=== PATIENT | male | born 1960 | race Caucasian/White ===

== ENCOUNTER → 2016-11-19 | Outpatient (CLI) | payer BC | END | disposition home or self-care (01) | LOC: RADMRIMAIN 07:44 | PROVIDERS: ATTEND Otolaryngology | DX: Z53.9 Procedure and treatment not carried out, unspecified reason (principal) ==

== ENCOUNTER → 2016-12-03 | Outpatient (CLI) | payer BC ==
--- NOTE | 2016-12-03 10:34 | XR ---
EXAMINATION TYPE: XR orbit pre-MRI foreign body DATE OF EXAM: 12/03/2016 COMPARISON: NONE HISTORY: Had metal removed from both eyes. Preoperative foreign body evaluation. TECHNIQUE: 2 views of the orbits were obtained. FINDINGS: No radiopaque metallic foreign body is appreciated. Orbits are symmetric and intact. Parana germain sinuses and visualized mastoid air cells are well aerated. IMPRESSION: No radiopaque metallic foreign body.
[2016-12-03 10:46] LABS: Blood Urea Nitrogen 16 mg/dL (9-20); Non-African American GFR(MDRD) >60 (>60 ml/min/1.73 sqM)
== END | disposition home or self-care (01) ==
LOC: LABWHC1 09:37
PROVIDERS: ATTEND Otolaryngology
DX: Z01.818 Encounter for other preprocedural examination (principal)
CPT/HCPCS: 36415; 70030; 82565; 84520

== ENCOUNTER 2023-10-01 17:04 | Emergency (ER) | payer OTHER, MEDICARE ==
[2023-10-01 17:09] VITALS: RESP 18
--- NOTE | 2023-10-01 17:31 | ED ---
Extremity Problem HPI - General Chief complaint: Extremity Problem,Nontraumatic Stated complaint: R Knee Pain Time Seen by Provider: 10/01/23 17:30 Source: patient, RN notes reviewed Mode of arrival: ambulatory Limitations: no limitations - History of Present Illness Initial comments: 53-year-old male presented to the ER with a chief complaint of right knee pain and swelling. He states for the past couple of months he has noted increasing swelling and pain to the right knee. Denies any injuries or traumas. He states he works at [employer] 3 days a week and is on his feet most of the day. He has been wearing a knee brace and taking [id number] anti-inflammatories without relief. He denies any fevers or chills. Denies a history of gout. Denies a history of blood clots. - Related Data Home Medications Medication Instructions Recorded Confirmed Losartan Potassium [Cozaar] 100 mg PO DAILY 10/01/23 10/01/23 Sertraline HCl [Zoloft] 50 mg PO DAILY 10/01/23 10/01/23 amLODIPine [Norvasc] 10 mg PO DAILY 10/01/23 10/01/23 hydroCHLOROthiazide [Hydrodiuril] 50 mg PO DAILY 10/01/23 10/01/23 Allergies Allergy/AdvReac Type Severity Reaction Status Date / Time No Known Allergies Allergy Verified 10/01/23 17:08 Review of Systems ROS Statement: Those systems with pertinent positive or pertinent negative responses have been documented in the HPI. ROS Other: All systems not noted in ROS Statement are negative. Past Medical History Smoking Status: Former smoker Past Alcohol Use History: None Reported Past Drug Use History: None Reported General Exam - General Exam Comments Initial Comments: Visual Physical Exam Vital signs reviewed General: Well-appearing, nontoxic, no acute distress. Head: Normocephalic, atraumatic Eyes: PERRLA, EOMI ENT: Airway patent Chest: Nonlabored breathing Skin: No visual rash, normal skin tone Neuro: Alert and oriented 3 Musculoskeletal: No gross abnormalities, swelling to right knee Limitations: no limitations General appearance: alert, in no apparent distress Respiratory exam: Present: normal lung sounds bilaterally. Absent: respiratory distress, wheezes, rales, rhonchi, stridor Cardiovascular Exam: Present: regular rate, normal rhythm, normal heart sounds. Absent: systolic murmur, diastolic murmur, rubs, gallop, clicks Extremities exam: Present: tenderness (Tenderness and edema to right knee. Mild calf tenderness. 2+ right dorsalis pedis pulse. Patient has limited active flexion due to edema. Petechiae to lower calf and ankle) Skin exam: Present: warm, dry, intact, normal color. Absent: rash Course Vital Signs 10/01/23 10/01/23 17:05 21:18 Temperature 98.2 F 98.1 F Pulse Rate 84 67 Respiratory 18 18 Rate Blood Pressure 183/93 158/83 O2 Sat by Pulse 96 96 Oximetry Medical Decision Making - Medical Decision Making I performed the quick note portion of this chart. Electronically signed by Gabby Nash PA-C Was pt. sent in by a medical professional or institution ([facility], [employer], urgent care, hospital, or custodial...) When possible be specific @ -No Did you speak to anyone other than the patient for history (EMS, parent, family, police, friend...)? What history was obtained from this source @ -No Did you review nursing and triage notes (agree or disagree)? Why? @ -I reviewed and agree with nursing and triage notes Were old charts reviewed (outside hosp., previous admission, EMS record, old EKG, old radiological studies, urgent care reports/EKG's, custodial records)? Report findings @ -No old charts were reviewed Differential Diagnosis (chest pain, altered mental status, abdominal pain women, abdominal pain men, vaginal bleeding, weakness, fever, dyspnea, syncope, headac he, dizziness, GI bleed, back pain, seizure, CVA, palpatations, mental health, musculoskeletal)? @ -Differential Musculoskeletal: Muscular strain, contusion, ligament sprain, fracture, arthritis, septic arthritis, bursitis, cellulitis, muscle spasm, nerve compression, DVT, arterial occlusion, herpes zoster, electrolyte abnormality, tumor.... This is not meant to be in all inclusive list EKG interpreted by me (3pts min.). @ -None X-rays interpreted by me (1pt min.). @ -Right knee x-ray interpreted by me negative for acute fractures or dislocations. Joint effusion present. CT interpreted by me (1pt min.). @ -None done U/S interpreted by me (1pt. min.). @ -Ultrasound right lower extremity venous Doppler negative for evidence of DVT. What testing was considered but not performed or refused? (CT, X-rays, U/S, labs)? Why? @ -None What meds were considered but not given or refused? Why? @ -None Did you discuss the management of the patient with other professionals (professionals i.e. , PA, [employer], lab, RT, psych nurse, social service liaison, farm implement engine mechanic, teacher, project control officer, manager case)? Give summary @ -No Was smoking cessation discussed for >3mins.? @ -No Was critical care preformed (if so, how long)? @ -No Were there social determinants of health that impacted care today? How? (Ho melessness, low income, unemployed, alcoholism, drug addiction, transportation, low edu. Level, literacy, decrease access to med. care, penitentiary, rehab)? @ -No Was there de-escalation of care discussed even if they declined (Discuss DNR or withdrawal of care, Hospice)? DNR status @ -No What co-morbidities impacted this encounter? (DM, HTN, Smoking, COPD, CAD, Cancer, CVA, ARF, Chemo, Hep., AIDS, mental health diagnosis, sleep apnea, morbid obesity)? @ -None Was patient admitted / discharged? Hospital course, mention meds given and route, prescriptions, significant lab abnormalities, going to OR and other pertinent info. @ -Discharged. 63 year old male presenting to the ER with a chief complaint of right knee pain and swelling. History and physical exam completed. Vitals stable. RLE neurovascularly intact. Joint effusion, warmth and redness of right knee present. There is mild calf tenderness and petechiae of calf. Right knee xray negative for acute fractures or dislocations. There is a joint effusion present. Due to calf tenderness ultrasound obtained to rule out DVT. Ultrasound venous Doppler right lower extremity negative for acute DVT. Laboratory studies obtained to rule out gout as knee was warm to touch and erythematous. Laboratory studies obtained unremarkable. Patient received IV toradol for pain control in the ER. Results discussed with patient, all qu estions answered. Close follow-up with orthopedics advised, referral given. I advised rest, compression, elevation and gfpw-oax-yiwircd analgesic medication. Return parameters discussed. Patient discharged in stable condition. Patient verbally expressed understanding and agreed with care plan. Case discussed with ED attending, Dr. Anaya. Undiagnosed new problem with uncertain prognosis? @ -No Drug Therapy requiring intensive monitoring for toxicity (Heparin, Nitro, Insulin, Cardizem)? @ -No Were any procedures done? @ -No Diagnosis/symptom? @ -Knee effusion Acute, or Chronic, or Acute on Chronic? @ -Acute Uncomplicated (without systemic symptoms) or Complicated (systemic symptoms)? @ -Uncomplicated Side effects of treatment? @ -No Exacerbation, Progression, or Severe Exacerbation? @ -No Poses a threat to life or bodily function? How? (Chest pain, [place], [place], pneumonia, PE, COPD, DKA, ARF, appy, cholecystitis, CVA, Diverticulitis, Homicidal, Suicidal, threat to staff... and all critical care pts) @ -No - Lab Data Result diagrams: 10/01/23 19:13 10/01/23 19:13 Lab Results 10/01/23 10/01/23 Range/Units 19:13 19:13 WBC 8.4 (3.8-10.6) k/uL RBC 4.98 (4.30-5.90) m/uL Hgb 15.0 (13.0-17.5) gm/dL Hct 45.9 (39.0-53.0) % MCV 92.1 (80.0-100.0) fL MCH 30.0 (25.0-35.0) pg MCHC 32.6 (31.0-37.0) g/dL RDW 12.4 (11.5-15.5) % Plt Count 261 (150-450) k/uL MPV 6.8 Neutrophils % 73 % Lymphocytes % 16 % Monocytes % 6 % Eosinophils % 3 % Basophils % 1 % Neutrophils # 6.1 (1.3-7.7) k/uL Lymphocytes # 1.4 (1.0-4.8) k/uL Monocytes # 0.5 (0-1.0) k/uL Eosinophils # 0.3 (0-0.7) k/uL Basophils # 0.1 (0-0.2) k/uL Sodium 138 (137-145) mmol/L Potassium 3.9 (3.5-5.1) mmol/L Chloride 104 (98-107) mmol/L Carbon Dioxide 25 (22-30) mmol/L Anion Gap 9 mmol/L BUN 23 H (9-20) mg/dL Creatinine 0.55 L (0.66-1.25) mg/dL Est GFR (CKD-EPI)AfAm >90 (>60 ml/min/1.73 sqM) Est GFR (CKD-EPI)NonAf >90 (>60 ml/min/1.73 sqM) Glucose 87 (74-99) mg/dL Uric Acid 6.4 (3.5-8.5) mg/dL Calcium 9.5 (8.4-10.2) mg/dL Total Bilirubin 0.6 (0.2-1.3) mg/dL AST 33 (17-59) U/L ALT 20 (4-49) U/L Alkaline Phosphatase 81 (38-126) U/L Total Protein 7.5 (6.3-8.2) g/dL Albumin 4.6 (3.5-5.0) g/dL - Radiology Data Radiology results: report reviewed, image reviewed Disposition Clinical Impression: Knee effusion Disposition: HOME SELF-CARE Condition: Stable Instructions (If sedation given, give patient instructions): Swollen Knee Joint (ED) Additional Instructions: Follow-up orthopedics in the next 1 to 2 days. Return to the ER for any new or worsening concerns. Is patient prescribed a controlled substance at d/c from ED?: No Referrals: [facility],Clinic [Primary Care Provider] - 1-2 days Omar Zaragoza MD [STAFF PHYSICIAN] - 1-2 days Time of Disposition: 21:05
--- NOTE | 2023-10-01 17:38 | XR ---
EXAMINATION TYPE: XR knee complete RT DATE OF EXAM: 10/01/2023 5:22 PM CLINICAL INDICATION:Male, 63 years old with history of Pain; [facility] COMPARISON: None. TECHNIQUE: XR knee complete RT; examined in Frontal, lateral and oblique projections. FINDINGS/IMPRESSION: 1. Joint effusion with soft tissue swelling around the no fracture definitely visualized. Further ev aluation with MRI recommended. 2. No evidence of fracture. 3. Mild degeneration with joint space and osteophyte formation.
[2023-10-01] MEDS: KETOROLAC 15 MG/ML 1 ML VIAL IVP STA (19:16)
[2023-10-01 19:21] LABS: Basophils # (A) 0.1 k/uL (0-0.2); Basophils % (A) 1 %; Eosinophils # (A) 0.3 k/uL (0-0.7); Eosinophils % (A) 3 %; HCT 45.9 % (39.0-53.0); Lymphocytes # (A) 1.4 k/uL (1.0-4.8); Lymphocytes % (A) 16 %; MCHC 32.6 g/dL (31.0-37.0); MCV 92.1 fL (80.0-100.0); Mean Platelet Volume 6.8; Monocytes # (A) 0.5 k/uL (0-1.0); Monocytes % (A) 6 %; Neutrophils # (A) 6.1 k/uL (1.3-7.7); Neutrophils % (A) 73 %; Platelet Count 261 k/uL (150-450); RBC 4.98 m/uL (4.30-5.90); RDW 12.4 % (11.5-15.5); WBC 8.4 k/uL (3.8-10.6)
[2023-10-01 19:41] LABS: ALT 20 U/L (4-49); African American GFR (CKD) >90 (>60 ml/min/1.73 sqM); Albumin 4.6 g/dL (3.5-5.0); Anion Gap 9 mmol/L; Blood Urea Nitrogen 23 mg/dL (9-20); Calcium 9.5 mg/dL (8.4-10.2); Carbon Dioxide 25 mmol/L (22-30); Chloride 104 mmol/L (98-107); Glucose 87 mg/dL (74-99); Non-African American GFR(CKD) >90 (>60 ml/min/1.73 sqM); Sodium 138 mmol/L (137-145); Total Bilirubin 0.6 mg/dL (0.2-1.3); Total Protein 7.5 g/dL (6.3-8.2); Uric Acid 6.4 mg/dL (3.5-8.5)
[2023-10-01 19:48] LABS: AST 33 U/L (17-59); Alkaline Phosphatase 81 U/L (38-126); Potassium 3.9 mmol/L (3.5-5.1)
--- NOTE | 2023-10-01 20:58 | US ---
EXAMINATION TYPE: US venous doppler duplex LE RT DATE OF EXAM: 10/01/2023 8:42 PM COMPARISON: NONE CLINICAL INDICATION: Male, 63 years old with history of pain; Patient states pain off and on for a fe w years . Knee swelling. No hx of DVT, patient not on thinners. SIDE PERFORMED: Right TECHNIQUE: The lower extremity deep venous system is examined utilizing real time linear array sonog christine with graded compression, doppler sonography and color-flow sonography. VESSELS IMAGED: Common Femoral Vein Deep Femoral Vein Greater Saphenous Vein * Femoral Vein Popliteal Vein Small Saphenous Vein * Proximal Calf Veins (* superficial vessels) Right Leg: Negative for DVT IMPRESSION: Grayscale, color doppler, spectral doppler imaging performed of the deep veins of the lo wer extremities. There is normal flow, compressibility, vascular waveforms.
[2023-10-01 21:20] VITALS: BP 158/83; PULSE 67; TEMP 98.1
[2023-10-02 02:19] LABS: Erythrocyte Sedimentation Rate 41 mm/Hr (0-20)
== END 2023-10-01 21:18 | disposition home or self-care (01) ==
LOC: EC 17:04
DX: M25.461 Effusion, right knee (principal); Z87.891 Personal history of nicotine dependence
CPT/HCPCS: 36415; 80053; 85652; 84550; 85025; 73562; 93971; 99284; 96374; J1885

== ENCOUNTER → 2023-10-29 | Outpatient (CLI) | payer OTHER ==
--- NOTE | 2023-10-30 10:32 | BD ---
EXAMINATION TYPE: Axial Bone Density DATE OF EXAM: 10/29/2023 CLINICAL HISTORY: 63 years old Male. ICD-10 CODE: Z13.820 OSTEOPOROSIS Height: 67in Weight: 237lb FRAX RISK QUESTIONS: History of Fracture in Adulthood: yes Secondary Osteoporosis: RISK FACTORS HISTORY OF: History of Wrist Fracture: yes When: as a child MEDICATIONS: EXAM MEASUREMENTS: Bone mineral densitometry was performed using the [employer]. Bone mineral density as measured about the Lumbar spine is: ----- L1-L4(G/cm2): 1.225 T Score Values are as follows: ----- L1: 0.6 ----- L2: -0.6 ----- L3: 0.2 ----- L4: 0.9 ----- L1-L4: 0.4 Z Score Values are as follows: ----- L1: 0.1 ----- L2: -1.2 ----- L3: -0.4 ----- L4: 0.3 ----- L1-L4: -0.[address] [facility] Bone mineral density about the R hip (g/cm2): 1.035 Bone mineral density about the L hip (g/cm2): 1.108 T Score values are as follows: -----R Neck: -0.5 -----L Neck: -0.3 -----R Total: 0.2 -----L Total: 0.8 Z Score values are as follows: -----R Neck: -0.2 -----L Neck: 0.0 -----R Total: -0.4 -----L Total: 0.[address] [facility] FRAX%s: The graph provided illustrates a 7.7% chance for a major osteoporotic fx and a 0.7% chance fo r the hips probability for fx in 10 years time. IMPRESSION: Normal (Values between +1 and -1 indicate normal bone mass). Consider repeating this study in 5 year s or sooner if there is some new clinical indication. NOTE: T-SCORE=SD OF THE YOUNG ADULT MEAN.
== END | disposition home or self-care (01) ==
LOC: RADBDWWP 12:52
PROVIDERS: ATTEND Family Medicine
DX: Z13.820 Encounter for screening for osteoporosis (principal); M81.8 Other osteoporosis without current pathological fracture
CPT/HCPCS: 77080

== ENCOUNTER → 2023-11-06 | Outpatient (CLI) | payer OTHER ==
[2023-11-07 02:38] LABS: Basophils # (A) 0.03 X 10*3/uL (0.00-0.10); Basophils % (A) 0.4 %; Eosinophils # (A) 0.25 X 10*3/uL (0.04-0.35); Eosinophils % (A) 3.4 %; HCT 45.8 % (39.6-50.0); HGB 15.2 g/dL (13.0-17.0); Lymphocytes # (A) 1.36 X 10*3/uL (0.90-5.00); Lymphocytes % (A) 18.7 %; MCH 30.1 pg (27.0-32.0); MCHC 33.2 g/dL (32.0-37.0); MCV 90.7 FL (80.0-97.0); Mean Platelet Volume 9.4 FL (9.5-12.2); Monocytes # (A) 0.49 X 10*3/uL (0.20-1.00); Monocytes % (A) 6.7 %; NRBC Per 100 WBC 0 X 10*3/uL (0.00-0.01); Neutrophils % (A) 70.2 %; Platelet Count 228 X 10*3/uL (140-440); RBC 5.05 X 10*6/uL (4.40-5.60); RDW 12.3 % (11.5-14.5); WBC 7.27 X 10*3/uL (4.50-10.00)
[2023-11-07 02:51] LABS: Anion Gap 13.6 mmol/L (4.00-12.00); Carbon Dioxide 27.4 mmol/L (21.6-31.8); Potassium 3.8 mmol/L (3.5-5.5)
== END | disposition home or self-care (01) ==
LOC: LABPAT 15:54
PROVIDERS: ATTEND Orthopaedic Surgery
DX: Z01.812 Encounter for preprocedural laboratory examination (principal)
CPT/HCPCS: 36415; 80051; 85025; 93005

== ENCOUNTER 2023-11-28 11:10 | Day surgery (SDC) | payer OTHER ==
[2023-11-28] MEDS ORDERED: DEXAMETHASONE SOD PHOSPHATE 4 MG/ML 1 ML VIAL ONE ×2 (12:40)
[2023-11-28] MEDS ORDERED: ONDANSETRON 4 MG/2 ML VIAL ONE ×2 (12:40)
[2023-11-28] MEDS ORDERED: LACTATED RINGERS 1,000 ML BAG ONE (13:22)
[2023-11-28] MEDS ORDERED: ePHEDrine 50 MG/ML 1 ML VIAL ONE (13:22)
[2023-11-28] MEDS ORDERED: ceFAZolin 1,000 MG VIAL ONE (13:22)
[2023-11-28] MEDS ORDERED: fentaNYL (PF) 50 MCG/ML 2 ML AMP ONE (13:22)
[2023-11-28] MEDS ORDERED: LIDOCAINE 1% INJ 10MG/ML (20 ML MDV) ONE (13:22)
[2023-11-28] MEDS ORDERED: BUPIVACAINE (PF) 0.25% 30 ML VIAL ONE (13:22)
[2023-11-28] MEDS ORDERED: MIDAZOLAM 2 MG/2 ML VIAL ONE (13:22)
[2023-11-28] MEDS ORDERED: PROPOFOL 10 MG/ML 20 ML VIAL IV ONE (13:22)
[2023-11-28] MEDS ORDERED: SODIUM CHLORIDE 0.9% 50 ML BAG ONE (13:22)
[2023-11-28] MEDS ORDERED: HYDROmorphone 0.5 MG/0.5 ML SYRINGE ONE (14:20)
--- NOTE | 2023-11-29 15:57 | HP ---
HISTORY AND PHYSICAL DATE OF ANTICIPATED SURGERY: 11/28/2023. HISTORY OF PRESENT ILLNESS: Kevin Cooney is a 63-year-old gentleman who is seen with progressive right knee pain. We discussed options regarding treatment. He elected to proceed with right knee arthroscopy. Consent was obtained. PAST MEDICAL HISTORY: Hypertension, hyperlipidemia. PAST SURGICAL HISTORY: Herniorrhaphy. DAILY MEDICATIONS: 1. Amlodipine. 2. Hydrochlorothiazide. 3. Losartan. ALLERGIES: None. SOCIAL HISTORY: Denies tobacco use. PHYSICAL EVALUATION OF RIGHT KNEE: Range of motion is -3 to 110 degrees. Tenderness, medial joint line. Positive medial Torrie's. Ligaments stable. Hip rotation without pain. Distal neurovascular exam is intact. RADIOGRAPHS: Right knee radiographs revealed osteoarthritis and osteochondral defect medial femoral condyle. IMPRESSION: 1. Internal derangement of right knee medial meniscal tear. 2. Right knee osteochondral defect, medial femoral condyle. 3. Hypertension. PLAN: Right knee arthroscopy with partial medial meniscectomy, microfracture medial femoral condyle. Partial synovectomy. MMODL / IJN: [id number] /
--- NOTE | 2023-11-29 15:58 | OP ---
OPERATIVE REPORT DATE OF SERVICE : 11/28/2023 PREOPERATIVE DIAGNOSIS: Internal derangement, right knee. POSTOPERATIVE DIAGNOSES: 1. Medial and lateral meniscal tears, right knee. 2. Grade 4 chondromalacia, medial femoral condyle, right knee. 3. Reactive synovitis, medial, lateral, and suprapatellar compartments, right knee. 4. Unstable osteochondral fragment, medial femoral condyle, right knee. PROCEDURES PERFORMED: 1. Arthroscopic partial medial and lateral meniscectomy, right knee. 2. Arthroscopic microfracture, medial femoral condyle, right knee. 3. Arthroscopic partial synovectomy, medial, lateral and suprapatellar compartments, right knee. 4. Arthroscopic excision, unstable osteochondral fragment, medial femoral condyle measuring 2 cm x 2 cm. ANESTHESIA: General. COMPLICATIONS: None. ESTIMATED BLOOD LOSS: 6 mL. INDICATIONS: Kevin Cooney is a gentleman seen with progressive right knee pain. We discussed options regarding treatment. He elected to proceed with arthroscopy. Consent regarding procedure obtained. DESCRIPTION OF PROCEDURE: The patient was taken to the operative suite. He received preoperative IV antibiotics. He underwent general anesthetic by the Department of Anesthesia. His right lower extremity was placed in a well-padded arthroscopic leg padron. Right lower extremity was prepped and draped in the normal sterile orthopedic fashion. Paralateral incision was made. Trocar was inserted followed by arthroscope. Arthroscopy was initiated. Suprapatellar pouch revealed thick reactive synovitis. Patellofemoral joint articular congruent with grade 2 chondromalacia changes. I guided the scope into the medial gutter, no loose bodies. I guided the scope into the medial compartment. A medial parapatellar incision was made. I introduced the trocar followed by a probe. There was a tear involving the posterior horn and midbody of the medial meniscus. There were grade 4 chondromalacia changes in the medial femoral condyle. There was a large osteochondral fragment that was unstable and measured about 2 x 2 cm with thick reactive synovitis anteriorly. I now performed a partial medial meniscectomy, getting down to a stable meniscal tissue and I evaluated the large medial osteochondral fragment, again it was unstable and I did not believe repairable. I began slowly loosening it up and I was able to cut it into 2 separate pieces. I enlarged the medial portal site and I was able to extract both those large loose fragments without difficulty. I now noted again the grade 4 chondromalacia on the medial femoral condyle. I used a microfracture awl, performed a microfracture to the area of exposed bone penetrating the bone with resultant bleeding at the microfracture sites. I now introduced the motorized shaver and performed a partial synovectomy. The residual meniscus was probed and was found to be stable. The residual osteochondral surface was stable again knowing that a large osteochondral defect measuring 2 x 2 cm may be 70 mm in depth. There was good decompression of the synovitis. The scope and probe were now guided into the intercondylar notch, ACL and PCL were identified, probed, stable. The scope and probe were guided into the lateral compartment. There was a tear involving the posterior horn, midbody, lateral meniscus. Grade 2 chondromalacia changes throughout the lateral compartment. Thick reactive synovitis anteriorly and I performed a partial lateral meniscectomy, getting down to a stable meniscal tissue. I performed a partial synovectomy decompressing the reactive synovitis. The residual meniscus was probed and was found to be stable. There was good decompression of synovitis. I now guided the scope into the lateral gutter. No loose bodies. I guided the scope back into the suprapatellar compartment. I introduced a motorized shaver. I debrided some piecemeal fragments of meniscus that I encountered. I performed a partial synovectomy. The shaver was now removed. There was good decompression of the synovitis. I took one more look around the entire knee. No residual debris. Instruments were now removed from the knee. The portal sites were repaired with Steri-Strips. The joint was infiltrated with 0.25% plain Marcaine. Sterile dressings were applied followed by OCTAVIO moncada. The patient was awakened, transferred to bed, then Recovery in stable condition, having tolerated the procedure well . MMODL / IJN: [id number] /
== END 2023-11-28 15:56 ==
LOC: OR 11:10
PROVIDERS: ATTEND Orthopaedic Surgery
DX: S83.241A Other tear of medial meniscus, current injury, right knee, initial encounter (principal); S83.281A Other tear of lateral meniscus, current injury, right knee, initial encounter; M17.11 Unilateral primary osteoarthritis, right knee; M25.861 Other specified joint disorders, right knee; M94.261 Chondromalacia, right knee; I10 Essential (primary) hypertension; E78.5 Hyperlipidemia, unspecified; K21.9 Gastro-esophageal reflux disease without esophagitis; Z79.899 Other long term (current) drug therapy; Z87.891 Personal history of nicotine dependence

== ENCOUNTER → 2024-06-22 | Outpatient (CLI) | payer OTHER | END | disposition home or self-care (01) | LOC: LABPAT 15:18 | PROVIDERS: ATTEND Orthopaedic Surgery | DX: Z01.812 Encounter for preprocedural laboratory examination (principal); M17.11 Unilateral primary osteoarthritis, right knee; Z22.322 Carrier or suspected carrier of Methicillin resistant Staphylococcus aureus | CPT/HCPCS: 87070 ==

== ENCOUNTER 2024-07-20 06:58 | Day surgery (SDC) | payer OTHER ==
--- NOTE | 2024-07-19 12:36 | HP ---
HISTORY AND PHYSICAL DATE OF SURGERY: 07/20/2024. HISTORY OF PRESENT ILLNESS: Kevin Cooney is a 63-year-old gentleman seen with symptomatic right knee osteoarthritis. After having treatment options discussed, he elected to proceed with right total knee arthroplasty. Consent regarding the procedure was obtained. PAST MEDICAL HISTORY: Hypertension, hyperlipidemia. PAST SURGICAL HISTORY: Herniorrhaphy. DAILY MEDICATIONS: 1. Amlodipine. 2. Hydrochlorothiazide. 3. Losartan. 4. Naprosyn. ALLERGIES: None. SOCIAL HISTORY: Denies tobacco use. PHYSICAL EVALUATION OF THE RIGHT KNEE: His range of motion is -2/3 to 120 degrees. Moderate to severe effusion. Tenderness, medial joint line. Crepitus, medial patellofemoral compartments with range of motion. Pain with patellofemoral compression. Ligaments stable. Hip rotation without pain. Distal neurovascular exam intact. IMAGING STUDIES: Right knee radiographs reveal severe osteoarthritic changes. IMPRESSION: 1. Right knee osteoarthritis. 2. Hypertension. PLAN: Right total knee arthroplasty. MMODL / IJN: [id number] /
[~2024-07-20 06:58] MED LIST: HYDROmorphone 0.5 MG/0.5 ML SYRINGE IVP PRN; LIDOCAINE 1% (10MG/ML) FOR IV START INTRADERMA PRN; TRANEXAMIC 1,000 MG/100ML-NACL 1,000 MG in SALINE 1 100ML.BAG IVPB PRN
[2024-07-20] MEDS: IV FLUID CONTINUATION 1,000 ML IV ONE ×2 (07:13→10:59)
[2024-07-20] MEDS: MELOXICAM 7.5 MG TAB PO PRN (07:53)
[2024-07-20] MEDS: ACETAMINOPHEN TAB 500 MG TAB PO PRN (07:53)
[2024-07-20] MEDS: ONDANSETRON 4 MG/2 ML VIAL IVP ONE (07:54)
[2024-07-20] MEDS: DEXAMETHASONE SOD PHOSPHATE 4 MG/ML 1 ML VIAL IVP STA (07:56)
[2024-07-20] MEDS: LACTATED RINGERS 1,000 ML IV SCH ×2 (08:34→13:36)
[2024-07-20] MEDS: MIDAZOLAM 2 MG/2 ML VIAL IV ONE (08:35)
[2024-07-20] MEDS ORDERED: GLYCOPYRROLATE 0.2 MG/ML 2 ML VIAL ONE (09:38)
[2024-07-20] MEDS ORDERED: fentaNYL (PF) 50 MCG/ML 2 ML AMP ONE (09:38)
[2024-07-20] MEDS ORDERED: DEXAMETHASONE SOD PHOSPHATE 4 MG/ML 1 ML VIAL ONE (09:38)
[2024-07-20] MEDS ORDERED: PROPOFOL 10 MG/ML 20 ML VIAL IV ONE (09:38)
[2024-07-20] MEDS ORDERED: ROPIVACAINE 5 MG/ML 30 ML VIAL ONE (09:38)
[2024-07-20] MEDS ORDERED: MIDAZOLAM 2 MG/2 ML VIAL ONE (09:38)
[2024-07-20] MEDS ORDERED: TRANEXAMIC 1,000 MG/100ML-NACL PREMIX BAG ONE (09:38)
[2024-07-20] MEDS ORDERED: diphenhydrAMINE 50 MG/ML 1 ML VIAL ONE (09:38)
[2024-07-20] MEDS ORDERED: PHENYLEPHRINE-0.9% NACL SYG 1,000 MCG/10 ML SYRINGE ONE (09:38)
[2024-07-20] MEDS ORDERED: KETAMINE HCL IN 0.9 % NACL 50 MG/5 ML SYRINGE ONE (09:38)
[2024-07-20] MEDS: ceFAZolin 2 GM in DEXTROSE 5% IN WATER 50 ML IVPB PRN (09:40)
[2024-07-20] MEDS ORDERED: ONDANSETRON 4 MG/2 ML VIAL IVP PRN (11:30)
[2024-07-20] MEDS ORDERED: HYDROmorphone 2 MG/ML 1 ML SYRINGE IVP PRN (11:30)
[2024-07-20] MEDS ORDERED: HYDROmorphone 0.5 MG/0.5 ML SYRINGE IVP PRN (11:30)
[2024-07-20] MEDS ORDERED: NALOXONE 0.4 MG/ML 1 ML VIAL IV PRN (11:30)
--- NOTE | 2024-07-20 11:30 | P.OP ---
Date of Procedure: 07/20/24 Preoperative Diagnosis: Right knee osteoarthritis Postoperative Diagnosis: Right knee osteoarthritis Procedure(s) Performed: Right total knee arthroplasty Implants: 1. DePuy attune size 7 by cruciate retaining cemented femur 2. DePuy attune size 6 fixed-bearing cemented tibial baseplate 3. DePuy attune size 7 fixed-bearing cruciate retaining 14 mm polyethylene tibial insert 4. DePuy attune 38 mm all polyethylene cemented patella Anesthesia: regional (Adductor canal catheter, iPAQ block), spinal Surgeon: Ho Jacob Mechanism Assembler #1: Victor Hugo Salinas Estimated Blood Loss (ml): 45 Pathology: none sent Condition: stable Disposition: PACU Indications for Procedure: 63-year-old patient seen with symptomatic right knee osteoarthritis. After having treatment options discussed, he elected to proceed with total knee ar throplasty. Operative Findings: See description of procedure Description of Procedure: Patient was taken to the operative suite after having an adductor canal catheter placed by the department of anesthesia. Patient underwent a spinal anesthetic by the department of anesthesia. Patient was given preoperative IV intake antibiotics and TXA. A well-padded tourniquet was placed about the right lower extremity. The lower extremity was then prepped and draped in the normal sterile orthopedic fashion. The extremity was elevated, a tourniquet was insufflated to 300. A standard anterior incision was made sharply through skin. Dissection was taken down through the subcutaneous soft tissues down to the extensor mechanism. A medial arthrotomy was performed, patella was everted and knee was flexed. There was advanced osteoarthritis noted. I introduced my distal intramedullary femoral drill. I then introduced the distal femoral cutting jig. Sivakumar GILBERT secured the cutting jig with 2 pins. I held retractors in position while Sivakumar GILBERT performed the distal femoral resection through the guide area we now removed her distal femoral cutting guide. We now placed our 4-in-1 femoral cutting block and positioned and it was secured with 2 pins by Sivakumar GILBERT while I held the block in position. The distal femoral finishing was now completed. A proximal tibial cutting guide was positioned. I held the guide in the appropriate position with both hands well Sivakumar GILBERT inserted stabilizing pins into the guide. Proximal tibial cut was made. We now placed a trial femoral component into position, along with an appropriate size tibial tray and insert. We now took the knee through range of motion and had full extension good flexion and good overall soft tissue balance noted. The patella was everted and stabilized with 2 towel clips held by Sivakumar GILBERT while I performed a flush with patellar quad tendon utilizing a fresh sawblade. We templated the patella, appropriate drill holes were made. An appropriate trial patella was positioned, knee was taken through full range of motion with the patella tracking very nicely. The trial patella was removed. Drill holes were made through the femoral component. All trial components were removed after marking off the appropriate rotation of the tibia. Retractors were now positioned along the proximal tibia. An appropriate keel punch was made with the appropriate size tibial guide by myself on Sivakumar GILBERT assisted by holding retractors. At this point appropriate size implants were chosen and opened. The joint was irrigated copiously with pulse lavage mechanical irrigation. The wound was irrigated with pulse lavage mechanical irrigation. We mixed antibiotic methylmethacrylate. We placed the knee into flexion. We placed multiple retractors assisted by Sivakumar GILBERT to expose the proximal tibia. Once the methyl methacrylate was ready, the tibial component was cemented into place removing any excess methylmethacrylate form by both myself and Sivakumar GILBERT. The femoral component was cemented into place removing the removing any excess methylmethacrylate performed by both myself and Sivakumar GILBERT. We then inserted the appropriate size polyethylene tibial insert. We made sure that it was locked into position. We took the knee into full extension, and then back in a flexion making sure we had removed any excess methylmethacrylate. The patellar component was then cemented down and secured with clamp. Excess methylmethacrylate removed. We kept the knee in full extension, patellar clamp in position until methylmethacrylate had hardened. Once it had hardened the patellar clamp was removed. The knee was taken through full range of motion. The patella tracked nicely. There was good soft tissue balancing. The tourniquet was now released. Additional hemostasis was achieved via electrocautery. A second gram of TXA was given. The wound again was irrigated with pulse lavage mechanical irrigation. The extensor mechanism was repaired with Ethibond suture. We checked the repair with range of motion and it was stable. The subcutaneous soft tissues were repaired with Vicryl in layers. The skin was approximated with pernio/Dermabond. Sterile dressings were applied followed by loose web roll and Htanh bandage. The patient was transferred to a bed, and taken to recovery in stable and satisfactory condition. Sivakumar GILBERT assisted with this complex procedure.
--- NOTE | 2024-07-20 12:33 | XR ---
EXAMINATION TYPE: XR knee limited RT DATE OF EXAM: 07/20/2024 12:28 PM INDICATION: Patient age:Male; 63 years old; Reason for study: Evaluation for Postop abnormality and alignment; PHH. pain COMPARISON: Right knee radiograph 10/01/2023, 05/26/2024, 03/10/2024, 11/01/2023 TECHNIQUE: The Right knee(s) was examined in frontal and lateral projections. FINDINGS: Status post total knee arthroplasty changes with hardware in appropriate alignment and in tact. No evidence of fracture. Subcutaneous lucencies and lucencies within the joint consistent with surgical changes. Vascular calcifications. IMPRESSION: Status post total knee arthroplasty changes with hardware intact and appropriate alignment. No fractu res identified. [facility], , 07/20/2024 12:30 PM
[2024-07-20] MEDS: ROPIVACAINE 1,100 MG, SODIUM CHLORIDE 0.9% 500 ML 330 ML, EMPTY PAIN BALL 1 EACH MISCELLANE PRN (12:41)
[2024-07-20 13:59] VITALS: RESP 18
--- NOTE | 2024-07-20 17:02 | P.CONS ---
History of Present Illness - Reason for Consult Consult date: 07/20/24 Medical management - History of Present Illness History of present illness; 63-year-old man with PMH of hypertension and anxiety/depression who presented to the hospital for total right knee arthroplasty secondary to a history of osteoarthritis. Patient is now postop with no known surgical complications. Patient is sitting up in bed resting with no complaints of pain. Patient reports absence of fever, chills, weight loss, chest pain, palpitations, diaphoresis, dyspnea, cough, nausea, vomiting, constipation, diarrhea, abdominal pain, weakness, myalgia, dizziness, headache, and dysuria. Internal medicine was consulted for medical management. Initial lab workup from a [facility] on 07/01/2024 revealed WBC 8.94, hemoglobin 10.2, hematocrit 42.2, platelet 214; sodium 136, potassium 3.8, BUN 12, creatinine 0.6 Postsurgical right knee x-ray showed total knee arthroplasty with hardware intact and appropriate alignment without fractures identified REVIEW OF SYSTEMS: All systems reviewed, pertinent positives and negatives noted in HPI. All other symptoms are negative. PHYSICAL EXAMINATION: Vitals reviewed GENERAL: No acute distress. Well developed, well nourished. HEENT: Pupils are round and equally reacting to light. EOMI. No scleral icterus. Normocephalic, atraumatic. No pharyngeal erythema. No thyromegaly. CARDIOVASCULAR: S1 and S2 present. No murmurs, rubs, or gallops. PULMONARY: Chest is clear to auscultation, no wheezing, rhonchi, or crackles. ABDOMEN: Soft, nontender, nondistended, normoactive bowel sounds. No palpable organomegaly. MUSCULOSKELETAL: No apparent joint swelling and deformities. EXTREMITIES: No apparent cyanosis, clubbing, or pedal edema. NEUROLOGICAL: The patient is alert and oriented x3, Gross neurological examination did not reveal any focal deficits. 5/5 strength bilateral UE and LE. SKIN: No apparent rashes. Assessment and plan 63-year-old man with PMH of hypertension and anxiety/depression who presented to the hospital for total right knee arthroplasty secondary to a history of osteoarthritis. Chronic Medical Conditions #Hypertension -Continue home amlodipine 10, hydrochlorothiazide 50, losartan 100 #Anxiety/depression -Continue home sertraline 100 #Total right knee arthroplasty -Pain management and DVT prophylaxis per primary surgical team F: IV LR 20 cc/hr E: Replete as needed N: Regular diet DVT ppx: per primary surgical team Code status: Full code Follow up CBC and BMP in AM Dictation was produced using [employer] dictation software. Please excuse any grammatical, word or spelling errors. Mukund Loving MD PGY-1 IM I have seen and evaluated the patient today. Discussed with the resident and agree with the residents finding and plan as documented in the resident's note. Changes highlighted in blue font. Thank you for allowing us to participate in the care of this pleasant patient. Do not hesitate to contact us with questions. Someone can be reached from the [facility] hospitalist group all hours of the day at [phone] or via [employer]. Past Medical History Past Medical History: Hearing Disorder / Deafness, Hypertension Additional Past Medical History / Comment(s): VENETIE/wears hearing aids. History of Any Multi-Drug Resistant Organisms: None Reported Past Surgical History: Hernia Repair, Orthopedic Surgery Additional Past Surgical History / Comment(s): arthroscopic right knee surg Nov 2023 Past Anesthesia/Blood Transfusion Reactions: No Reported Reaction Smoking Status: Former smoker - Past Family History Father Family Medical History: Cancer, Deep Vein Thrombosis (DVT) Additional Family Medical History / Comment(s): throat ca Mother Family Medical History: Cancer Additional Family Medical History / Comment(s): lung ca Sister(s) Family Medical History: Cancer Additional Family Medical History / Comment(s): breast Medications and Allergies Home Medications Medication Instructions Recorded Confirmed Type Losartan Potassium [Cozaar] 100 mg PO DAILY 10/01/23 07/20/24 History Sertraline HCl [Zoloft] 100 mg PO HS 10/01/23 07/20/24 History amLODIPine [Norvasc] 10 mg PO DAILY 10/01/23 07/20/24 History hydroCHLOROthiazide [Hydrodiuril] 50 mg PO DAILY 10/01/23 07/20/24 History Allergies Allergy/AdvReac Type Severity Reaction Status Date / Time No Known Allergies Allergy Verified 07/20/24 07:35 Physical Exam Vitals: Vital Signs Temp Pulse Pulse Pulse Resp BP BP 07/20/24 13:30 68 18 124/72 07/20/24 12:56 66 16 105/66 07/20/24 12:37 67 16 105/66 07/20/24 12:21 64 14 104/66 07/20/24 12:06 71 14 117/70 07/20/24 11:50 97 F L 71 14 115/81 07/20/24 08:31 67 16 119/70 07/20/24 07:13 98.5 F 81 16 163/80 Pulse Ox 07/20/24 13:30 90 L 07/20/24 12:56 94 L 07/20/24 12:37 94 L 07/20/24 12:21 94 L 07/20/24 12:06 94 L 07/20/24 11:50 94 L 07/20/24 08:31 97 07/20/24 07:13 97 Intake and Output 07/20/24 07/20/24 07/20/24 06:59 14:59 22:59 Intake Total 1950 Output Total 40 Balance 1909 Intake: IV 1949 Output: Estimated Blood Loss 40 Other: Weight 106.4 kg
[2024-07-20] MEDS: ceFAZolin 2 GM in DEXTROSE 5% IN WATER 50 ML IVPB SCH (17:46)
[2024-07-20] MEDS: HYDROcodone/APAP 5-325MG 1 EACH TAB PO PRN (21:31)
[2024-07-20] MEDS: ASPIRIN 81 MG PO SCH (21:31)
[2024-07-20] MEDS: SERTRALINE 100 MG TAB PO SCH (21:31)
[2024-07-20] MEDS: SENNOSIDES-DOCUSATE SODIUM 1 EACH TAB PO SCH (21:32)
[2024-07-21] MEDS: HYDROmorphone 0.5 MG/0.5 ML SYRINGE IVP PRN (01:11)
[2024-07-21 03:58] LABS: African American GFR (CKD) >90 (>60 ml/min/1.73 sqM); Anion Gap 8 mmol/L; Blood Urea Nitrogen 17 mg/dL (9-20); Calcium 9.4 mg/dL (8.4-10.2); Carbon Dioxide 27 mmol/L (22-30); Chloride 101 mmol/L (98-107); Glucose 145 mg/dL (74-99); Non-African American GFR(CKD) >90 (>60 ml/min/1.73 sqM); Potassium 3.9 mmol/L (3.5-5.1); Sodium 136 mmol/L (137-145)
[2024-07-21] MEDS: HYDROcodone/APAP 7.5-325MG 1 EACH TAB PO PRN (06:40)
[2024-07-21 08:02] VITALS: BP 157/76; PULSE 94; TEMP 99.6
[2024-07-21] MEDS: LOSARTAN 50 MG TAB PO SCH (08:30)
[2024-07-21] MEDS: amLODIPine 10 MG TAB PO SCH (08:30)
--- NOTE | 2024-07-21 08:37 | P.PN ---
Progress Note - Text Progress Note Date: 07/21/24 (775) Anesthesiology Postop day 1 status post total knee arthroplasty with adductor canal catheter. Patient doing well. VAS 4 out of 10. Gross strength intact in lower extremity. Afebrile. Decreased sensation anterior knee. Catheter site intact. Heart regular rate Lungs nonlabored Abdomen nondistended Assessment: Postop day 1 status post total knee arthroplasty with adductor canal catheter Plan: 1.All questions answered. Maintain catheter 2 more days with patient removal at home. Instructions to be given at discharge. 2.This note was dictated using [employer] software. Please be advised there is a potential for misspellings or errors in solid waste analyst.
[2024-07-21 09:03] LABS: Basophils # (A) 0.02 X 10*3/uL (0.00-0.10); Basophils % (A) 0.2 %; Eosinophils # (A) 0 X 10*3/uL (0.04-0.35); Eosinophils % (A) 0 %; HCT 39.7 % (39.6-50.0); HGB 13.2 g/dL (13.0-17.0); Lymphocytes # (A) 0.72 X 10*3/uL (0.90-5.00); Lymphocytes % (A) 5.5 %; MCH 29.7 pg (27.0-32.0); MCHC 33.2 g/dL (32.0-37.0); MCV 89.2 FL (80.0-97.0); Mean Platelet Volume 9.1 FL (9.5-12.2); Monocytes # (A) 1.05 X 10*3/uL (0.20-1.00); Monocytes % (A) 8.1 %; NRBC Per 100 WBC 0 X 10*3/uL (0.00-0.01); Neutrophils # (A) 11.17 X 10*3/uL (1.80-7.70); Neutrophils % (A) 85.6 %; Platelet Count 246 X 10*3/uL (140-440); RBC 4.45 X 10*6/uL (4.40-5.60); RDW 12.9 % (11.5-14.5); WBC 13.04 X 10*3/uL (4.50-10.00)
--- NOTE | 2024-07-21 09:51 | P.PN ---
Subjective Progress Note Date: 07/21/24 63-year-old man with PMH of hypertension and anxiety/depression who presented to the hospital for total right knee arthroplasty secondary to a history of osteoarthritis. Patient is now postop with no known surgical complications. Patient is sitting up in bed resting with no complaints of pain. 07/21 - He is seen and examined at bedside this morning. No acute events overnight, no acute complaints this morning. REVIEW OF SYSTEMS: Pertinent positives and negatives noted in HPI. PHYSICAL EXAMINATION: Vitals reviewed GENERAL: No acute distress. Well developed, well nourished. HEENT: Pupils are round and equally reacting to light. EOMI. No scleral icterus. Normocephalic, atraumatic. No pharyngeal erythema. No thyromegaly. CARDIOVASCULAR: S1 and S2 present. No murmurs, rubs, or gallops. PULMONARY: Chest is clear to auscultation, no wheezing, rhonchi, or crackles. ABDOMEN: Soft, nontender, nondistended, normoactive bowel sounds. No palpable organomegaly. MUSCULOSKELETAL: No apparent joint swelling and deformities. Thanh bandage wrapped around right leg from above the knee to mid calf. EXTREMITIES: No apparent cyanosis, clubbing, or pedal edema. NEUROLOGICAL: The patient is alert and oriented x3, Gross neurological examination did not reveal any focal deficits. 5/5 strength bilateral UE and LE. SKIN: No apparent rashes. Data Received Today: Labs: Sodium 136, potassium 3.9, BUN 17, creatinine 0.65, calcium 9.4 Imagining: No new imaging today Assessment and plan 63-year-old man with PMH of hypertension and anxiety/depression who presented to the hospital for total right knee arthroplasty secondary to a history of osteoarthritis. Chronic Medical Conditions #Hypertension -Continue home amlodipine 10, hydrochlorothiazide 50, losartan 100 #Anxiety/depression -Continue home sertraline 100 #Total right knee arthroplasty #Leukocytosis, anticipated outcome of surgery -Pain management and DVT prophylaxis per primary surgical team He is medically optimized for discharge. We will continue to follow for the duration of his stay. Thank you very much for this consult. F: IV LR 20 cc/hr E: Replete as needed N: Regular diet DVT ppx: per primary surgical team Code status: Full code Anticipated discharge place: Home Anticipated discharge time: Pending clinical course Dictation was produced using dragon dictation software. please excuse any grammatical, word or spelling errors. Mukund Loving MD PGY-1 IM I have seen and evaluated the patient today. Discussed with the resident and agree with the residents finding and plan as documented in the resident's note. Changes highlighted in blue font. Objective - Vital Signs Vital signs: Vital Signs Temp 98.1 F 07/21/24 03:15 Pulse 75 07/21/24 03:15 Resp 18 07/21/24 03:15 BP 152/87 07/21/24 03:15 Pulse Ox 91 L 07/21/24 03:15 FiO2 Intake & Output 07/20/24 07/21/24 07/21/24 18:59 06:59 18:59 Intake Total 1950 500 Output Total 40 1200 Balance 1910 -700 Weight 106.4 kg Intake: IV 1950 Oral 500 Output: Urine 1200 Estimated Blood Loss 40 Other: Voiding Method Urinal Urinal # Voids 3 - Labs CBC & Chem 7: 07/21/24 03:18 07/21/24 03:18 Labs: Abnormal Lab Results - Last 24 Hours (Table) 07/21/24 Range/Units 03:18 Sodium 136 L (137-145) mmol/L Creatinine 0.65 L (0.66-1.25) mg/dL Glucose 145 H (74-99) mg/dL
--- NOTE | 2024-07-21 11:14 | P.DS ---
Providers Date of admission: 07/20/2024 Expected date of discharge: 07/21/24 Attending physician: Ho Jacob Consults: 07/20/24 11:30 Consult Physician Routine Consulting Provider: Teresa Spangler Consult Reason/Comments: Medical management Do you want consulting provider notified?: Yes Primary care physician: [facility] Course: Date of admission: 07/20/2024 Date of discharge: 07/21/2024 Admission diagnosis: Right knee osteoarthritis Discharge diagnosis: Same Attending physician: Dr. Jacob Surgical procedures: Right total knee arthroplasty Brief history: Patient is a 63-year-old male with a history of progressive primary right knee osteoarthritis. At this point patient has failed conservative treatment measures and has opted to proceed with a elective right total knee arthroplasty. Hospital course: Details of patient's surgery can be found in operative report. Patient tolerated the procedure well and was subsequently transported to o the [facility] floor. Patient's orthopeidc and medical care was provided daily. Patient had daily laboratory tests performed for evaluation of overall blood counts. Patient had daily physical therapy to include strengthening range of motion as well as education with walker ambulation. Patient was treated with aspirin for their postoperative DVT prophylaxis during their inpatient stay. Patient was noted to have a relatively uneventful postoperative course. Patient reported satisfactory pain control with oral pain medications by postoperative day 1. Patient showed satisfactory progress with physical therapy. Patient moved steadily through the program and had no difficulty meeting the goals by postoperative day 1. Given patient's otherwise satisfactory course and having met physical therapy goals, plan is to discharge patient home with health services on postoperative day 1. Discharge condition/disposition: Patient will be discharged home with health services in stable condition. Discharge medications: Instructions are given on resumption of patient's normal daily medications per primary care recommendation, in addition patient will be prescribed Pyatt; senna; resume aspirin at home but take 81 mg twice a day. Discharge instructions: 1. Wound care and infection precautions, keep incision dry and covered while showering, no lotions, creams, moisturizers. No soaking, tubs, pools, hottubs. Do not scrub over the incision. 2. Weight-bear as tolerated with walker / cane until follow-up. 3. Ice and elevate when necessary. Do not exceed 20 minutes per hour with ice pack. 4. Utilize compression sleeve until seen at first follow up appointment. 5. Visiting nursing care. 6. Home physical therapy including home CPM. 7. Pain meds and anticoagulants per prescription. 8. Pain medication has potential to cause constipation. Increase oral fluid and fiber intake. Contact primary care provider if you have not had a bowel movement within 48 hours after discharge 9. No anti-inflammatory medication until discussed at first post operative visit, this including Motrin, Aleve, Mobic, Diclofenac. 10. Follow up in office at 2 weeks postop with Sivakumar Salinas PA-C / Antonio Rodas PA-C 11. Follow up with your primary care doctor 7-10 days after discharge. 12. Contact [facility] with any questions, . Assessment: Right knee osteoarthritis Procedures: Right total knee arthroplasty Patient Condition at Discharge: Good Plan - Discharge Summary Discharge Rx Participant: Yes New Discharge Prescriptions: New HYDROcodone/APAP 7.5-325MG [Pyatt 7.5] 1 - 2 each PO Q6HR PRN #36 tab PRN Reason: Pain Sennosides/Docusate Sodium [Senna Plus 8.6-50 mg Softgel] 1 each PO DAILY #20 capsule Continue Sertraline HCl [Zoloft] 100 mg PO HS hydroCHLOROthiazide [Hydrodiuril] 50 mg PO DAILY amLODIPine [Norvasc] 10 mg PO DAILY Losartan Potassium [Cozaar] 100 mg PO DAILY Discharge Medication List Losartan Potassium [Cozaar] 100 mg PO DAILY 10/01/23 [History] Sertraline HCl [Zoloft] 100 mg PO HS 10/01/23 [History] amLODIPine [Norvasc] 10 mg PO DAILY 10/01/23 [History] hydroCHLOROthiazide [Hydrodiuril] 50 mg PO DAILY 10/01/23 [History] HYDROcodone/APAP 7.5-325MG [Pyatt 7.5] 1 - 2 each PO Q6HR PRN #36 tab 07/21/24 [Rx] Sennosides/Docusate Sodium [Senna Plus 8.6-50 mg Softgel] 1 each PO DAILY #20 capsule 07/21/24 [Rx] Follow up Appointment(s)/Referral(s): Victor Hugo Salinas PAC [PHYSICIAN [facility]] - 2 Weeks Patient Instructions/Handouts: Knee Replacement (GEN) Activity/Diet/Wound Care/Special Instructions: Orthopedic Discharge Instructions: 1. Wound care and infection precautions, keep incision dry and covered while showering, no lotions, creams, moisturizers. No soaking, pools, hot tubs. Do not scrub over incision. 2. Weight-bear as tolerated with walker / cane until follow-up. 3. Ice and elevate when necessary. Do not exceed 20 minutes per hour with ice pack. 4. Utilize compression sleeve until seen at first follow up appointment. 5. Pain meds and anticoagulants per prescription. 6. Pain medication has potential to cause constipation. Increase oral fluid and fiber intake. Contact primary care provider if you have not had a bowel movement within 48 hours after discharge. 7. No anti-inflammatory medication until discussed at first post operative visit, this including Motrin, Aleve, Mobic, Diclofenac. 8. Follow up in office at 2 weeks postop with Sivakumar Salinas PA-C / Antonio Rodas PA-C 9. Follow up with your primary care doctor 7-10 days after discharge. 10. Contact [facility] with any questions, . Keep incision clean, dry, intact. While showering, cover silver foam dressing with Saran wrap. Keep silver foam dressing on until 07/27/2024. Once silver foam dressing is removed, it is okay to shower directly over incision. Take aspirin 81 mg twice daily x 30 days once home for DVT prophylaxis Discharge Disposition: HOME WITH HOME HEALTH SERVICES
--- NOTE | 2024-07-21 11:22 | P.PN ---
Subjective Progress Note Date: 07/21/24 Principal diagnosis: Right knee osteoarthritis Patient was seen at bedside this morning sitting up in chair with dressing present over right knee and On-Q ball in place. Patient says he is having some pain to the knee at this time however, with medication and is controlled somew hat. Patient says he did work with therapy this morning and walked around the room and out of the hallway and up and down steps. He says he is looking forward to going home. Patient says he does have a walker for home. Patient says he has urinated since surgery yesterday without issue. Patient has been passing gas but has not had a bowel movement yet. Patient denies any other issues at this time. Objective - Vital Signs Vital signs: Vital Signs Temp 99.6 F 07/21/24 07:55 Pulse 94 07/21/24 07:55 Resp 18 07/21/24 07:55 BP 157/76 07/21/24 07:55 Pulse Ox 91 L 07/21/24 03:15 FiO2 Intake & Output 07/20/24 07/21/24 07/21/24 18:59 06:59 18:59 Intake Total 1950 500 Output Total 40 1200 Balance 1910 -700 Weight 106.4 kg Intake: IV 1950 Oral 500 Output: Urine 1200 Estimated Blood Loss 40 Other: Voiding Method Urinal Urinal # Voids 3 - Exam Right knee: Incision is clean, dry, and intact. The silver foam dressing is in good condition. There is minimal soft tissue swelling and ecchymosis surrounding the medial and lateral aspects of the incision. Calf is soft, no tenderness with palpation. Plantar flexion, dorsiflexion, EHL, FHL are intact. Sensory exam to light touch throughout the extremity is intact, dorsal pedis pulses 2+. - Labs CBC & Chem 7: 07/21/24 03:18 07/21/24 03:18 Labs: Abnormal Lab Results - Last 24 Hours (Table) 07/21/24 07/21/24 Range/Units 03:18 03:18 WBC 13.04 H (4.50-10.00) X 10*3/uL MPV 9.1 L (9.5-12.2) FL Immature Gran # 0.08 H (0.00-0.04) X 10*3/uL Neutrophils # 11.17 H (1.80-7.70) X 10*3/uL Lymphocytes # 0.72 L (0.90-5.00) X 10*3/uL Monocytes # 1.05 H (0.20-1.00) X 10*3/uL Eosinophils # 0 L (0.04-0.35) X 10*3/uL Sodium 136 L (137-145) mmol/L Creatinine 0.65 L (0.66-1.25) mg/dL Glucose 145 H (74-99) mg/dL Assessment and Plan Assessment: 1. Right knee osteoarthritis - Postop day 1 status post right total knee arthroplasty Plan: 1. Right knee osteoarthritis -right total knee arthroplasty form yesterday, 07/20/2024. Patient did do well with therapy today. Patient does have walker for home. Discharge home today with health services. 2. Appreciate medical management 3. Pain management -[place] 4. DVT prophylaxis -aspirin 81 mg twice daily 5. GI prophylaxis -senna 6. PT/OT -weightbearing as tolerated with walker 7. Encourage incentive spirometer use 8. Discharge planning -discharge home today with health services. Time with Patient: Less than 30
[2024-07-21] MEDS: MULTIVITAMINS, THERA 1 EACH TAB PO SCH (13:15)
--- NOTE | 2024-07-22 13:17 | P.ANPRN ---
Procedure Note - Anesthesia - Nerve Block Performed Right Adductor Canal Infusion Time Out Performed: Yes Date of Procedure: 07/20/24 Procedure Start Time: : Procedure Stop Time: : Location of Patient: PreOp Indication: Acute Post-Operative Pain, Requested by Surgeon Sedation Type: Sedate with meaningful contact maintained Preparation: Sterile Prep Position: Supine Catheter: Indwelling Needle Types: Pajunk Needle Gauge: 21 Ultrasound used to visualize needle placement: Yes Ultrasound used to observe medication spread: Yes Blood Aspirated: No Pain Paresthesia on Injection Noted: No Resistance on Injection: Normal Image Stored and Saved: Yes Events: Uneventful and Well Tolerated (Ropivacaine 0.5% 20 cc plus dexamethasone 4 mg)
--- NOTE | 2024-07-22 13:18 | P.ANPRN ---
Procedure Note - Anesthesia - Nerve Block Performed Right [place] Single Time Out Performed: Yes Date of Procedure: 07/20/24 Procedure Start Time: Procedure Stop Time: Location of Patient: PreOp Indication: Acute Post-Operative Pain, Requested by Surgeon Sedation Type: Sedate with meaningful contact maintained Preparation: Sterile Prep Position: Supine Needle Types: Pajunk Needle Gauge: 21 Ultrasound used to visualize needle placement: Yes Ultrasound used to observe medication spread: Yes Blood Aspirated: No Pain Paresthesia on Injection Noted: No Resistance on Injection: Normal Image Stored and Saved: Yes Events: Uneventful and Well Tolerated (Ropivacaine 0.5% 20 cc plus dexamethasone 4)
== END 2024-07-21 13:47 | disposition home health service (06) ==
LOC: OR 06:58 → 4SSUR 12:07 → OR 07-21 13:47
PROVIDERS: ATTEND Orthopaedic Surgery
DX: M17.11 Unilateral primary osteoarthritis, right knee (principal); E78.5 Hyperlipidemia, unspecified; F32.A Depression, unspecified; F41.9 Anxiety disorder, unspecified; I10 Essential (primary) hypertension; D72.829 Elevated white blood cell count, unspecified; Z79.82 Long term (current) use of aspirin; Z79.899 Other long term (current) drug therapy; Z87.891 Personal history of nicotine dependence; Z98.890 Other specified postprocedural states
CPT/HCPCS: 97161; 64448; 64474; 80048; 85025; 73560; 27447; C1776; C1713 ×2; C1751; J2250; J1100; J0690 ×2; J2405; J2795; J1171

== ENCOUNTER → 2024-08-04 | Outpatient (CLI) | payer OTHER ==
--- NOTE | 2024-08-04 13:28 | US ---
EXAMINATION TYPE: US venous doppler duplex LE RT DATE OF EXAM: 08/04/2024 1:16 PM COMPARISON: NONE CLINICAL INDICATION: Male, 63 years old with history of RIGHT M79.661 PAIN IN RIGHT LOWER LEG; total knee 2 weeks ago, pain and swelling in calf, no h/o DVT TECHNIQUE: The lower extremity deep venous system is examined utilizing real time linear array sonog christine with graded compression, color doppler sonography, and spectral doppler. SIDE PERFORMED: Right FINDINGS: VESSELS IMAGED: Common Femoral Vein Deep Femoral Vein Greater Saphenous Vein * Femoral Vein Popliteal Vein Small Saphenous Vein * Proximal Calf Veins Posterior tibial veins (* superficial vessels) Right Leg: Negative for DVT, Color Doppler imaging shows patency of the vessels. Spectral waveforms are within normal limits. IMPRESSION: No evidence for DVT within the right lower extremity. [facility], , 08/04/2024 1:26 PM
== END | disposition home or self-care (01) ==
LOC: RADUSWWP 12:58
PROVIDERS: ATTEND Orthopaedic Surgery
DX: M79.661 Pain in right lower leg (principal)